=== PATIENT | female | born 1955 | race Caucasian/White ===

== ENCOUNTER 2018-05-01 21:09 | Emergency (ER) | payer OTHER ==
[~2018-05-01] VITALS: Ht 160 cm; Wt 95.3 kg
--- NOTE | 2018-05-01 23:22 | Diagnostic Imaging Report ---
EXAMINATION: CHEST 2 VIEWS INDICATION: EPIGASTRIC PAIN COMPARISON: None FINDINGS: PA and lateral views TUBES and LINES: None. LUNGS: Lungs are well inflated. Lungs are clear. There is no evidence of pneumonia or pulmonary edema. PLEURA: No pleural effusion or pneumothorax. HEART AND MEDIASTINUM: The cardiomediastinal silhouette is unremarkable. There are atherosclerotic calcifications within the aorta. BONES AND SOFT TISSUES: There are degenerative changes in the thoracic spine. Soft tissues are unremarkable. UPPER ABDOMEN: No free air under the diaphragm. IMPRESSION: No acute thoracic abnormality. Signed by: DR. César Armendariz MD on 05/01/2018 11:18 PM
== END 2018-05-02 01:18 | disposition home or self-care (01) ==
LOC: ER 21:09
DX: R07.89 Other chest pain (principal); I10 Essential (primary) hypertension; E78.5 Hyperlipidemia, unspecified
CPT/HCPCS: 71046; 93005; 99283

== ENCOUNTER → 2020-02-25 | Day surgery (SDC) | payer OTHER ==
[~2020-02-25] MED LIST: ALLERGY RELIEF10 M4 PO; GLUCAGON FOR INJ 1 MG VIAL ONE; HYOSCYAMINE 0.125 MG TAB ONE; HYOSCYAMINE SULFATE 0.5 MG/ML INJ ONE; IBUPROFEN200 MG PO; LIDOCAINE HCL 2% LOCAL INJ 5 ML SDV VIAL INJ ONE; LOVASTATIN20 MG PO; LYRICA150 MG PO; MICARDIS40 MG PO; PANTOPRAZOLE 40 MG 10ML VIAL IV ONE; PRILOSEC OTC20 MG PO; PROPOFOL IV EMULSION 10 MG/ML 20 ML VIAL ONE; SYNTHROID75 MCG PO
[2020-02-25 19:55] VITALS: BP 134/80
== END | disposition home or self-care (01) ==
LOC: OR 14:31
PROVIDERS: ATTEND Internal Medicine Gastroenterology
DX: K59.09 Other constipation (principal); K31.7 Polyp of stomach and duodenum; K29.50 Unspecified chronic gastritis without bleeding; K20.90 Esophagitis, unspecified without bleeding; K57.30 Diverticulosis of large intestine without perforation or abscess without bleeding; K21.9 Gastro-esophageal reflux disease without esophagitis; K64.8 Other hemorrhoids; E03.9 Hypothyroidism, unspecified; I10 Essential (primary) hypertension; E78.5 Hyperlipidemia, unspecified; M19.90 Unspecified osteoarthritis, unspecified site; Z01.812 Encounter for preprocedural laboratory examination; Z20.828 Contact with and (suspected) exposure to other viral communicable diseases
CPT/HCPCS: 43239; 45378; C9113; J1610; J1980; J2001; J2704; U0002

== ENCOUNTER 2020-03-31 14:27 | Emergency (ER) | payer OTHER ==
[~2020-03-31] VITALS: Ht 160 cm; Wt 95.3 kg
[~2020-03-31 14:27] MED LIST changes: -GLUCAGON FOR INJ 1 MG VIAL ONE; -HYOSCYAMINE 0.125 MG TAB ONE; -HYOSCYAMINE SULFATE 0.5 MG/ML INJ ONE; -LIDOCAINE HCL 2% LOCAL INJ 5 ML SDV VIAL INJ ONE; -PANTOPRAZOLE 40 MG 10ML VIAL IV ONE; -PROPOFOL IV EMULSION 10 MG/ML 20 ML VIAL ONE
[2020-03-31] MEDS ORDERED: FAMOTIDINE 20 MG/2 ML VIAL IV STA (15:29)
[2020-03-31] MEDS ORDERED: SODIUM CHLORIDE 0.9% 1000ML 1,000 ML IV SCH (15:30)
[2020-03-31] MEDS ORDERED: ONDANSETRON HCL INJ 2MG/ML 2ML 2 MG/ML VIAL IV STA (15:53)
[2020-03-31] MEDS ORDERED: MECLIZINE HCL 12.5 MG TAB PO ONE (16:00)
[2020-03-31] MEDS ORDERED: ONDANSETRON HCL INJ 2MG/ML 2ML 2 MG/ML VIAL ONE (16:29)
[2020-03-31] MEDS ORDERED: MECLIZINE HCL 12.5 MG TAB ONE (16:29)
[2020-03-31] MEDS ORDERED: FAMOTIDINE 20 MG/2 ML VIAL IV ONE (16:29)
[2020-03-31] MEDS ORDERED: SODIUM CHLORIDE 0.9% 1000ML 1,000 ML ONE (16:29)
[2020-03-31] MEDS ORDERED: ONDANSETRON ODT8 MG PO (18:11)
[2020-03-31] MEDS ORDERED: ONDANSETRON ODT4 MG PO (18:11)
[2020-03-31] MEDS ORDERED: MECLIZINE HCL12.5 MG PO (18:12)
[2020-03-31 18:22] VITALS: BP 168/96
[2020-03-31] MEDS ORDERED: FAMOTIDINE20 MG PO (18:23)
== END 2020-03-31 18:24 | disposition home or self-care (01) ==
LOC: FSED 15:30
DX: R42 Dizziness and giddiness (principal); K29.70 Gastritis, unspecified, without bleeding; R11.2 Nausea with vomiting, unspecified; K21.9 Gastro-esophageal reflux disease without esophagitis; I10 Essential (primary) hypertension; E03.9 Hypothyroidism, unspecified; E78.5 Hyperlipidemia, unspecified; G62.9 Polyneuropathy, unspecified; Z96.653 Presence of artificial knee joint, bilateral
CPT/HCPCS: 70450; 80053; 81003; 82553; 84484; 85025; 93005; 99284; J2405; J7030; J8597

== ENCOUNTER 2020-05-27 12:47 | Inpatient (IN) | payer OTHER ==
[~2020-05-27] VITALS: Ht 160 cm; Wt 93.9 kg
[~2020-05-27 12:47] MED LIST changes: +FAMOTIDINE20 MG PO; +MECLIZINE HCL12.5 MG PO; +ONDANSETRON ODT4 MG PO; +ONDANSETRON ODT8 MG PO
[2020-05-27] MEDS ORDERED: DILTIAZEM HCL 5 MG/ML 5 ML VIAL IV STA (13:09)
[2020-05-27] MEDS ORDERED: ASPIRIN 325 MG TAB PO ONE (13:15)
[2020-05-27] MEDS ORDERED: ASPIRIN 325 MG TAB ONE (13:29)
[2020-05-27] MEDS ORDERED: DILTIAZEM HCL VIAL 5 ML ONE (13:30)
[2020-05-27] MEDS ORDERED: ASPIRIN 81 MG CHEW TAB PO ONE (14:30)
[2020-05-27] MEDS ORDERED: SODIUM CHLORIDE FLUSH 10 ML SYR INJ PRN (14:30)
[2020-05-27] MEDS ORDERED: ONDANSETRON HCL INJ 2MG/ML 2ML 2 MG/ML VIAL IV PRN (14:30)
[2020-05-27] MEDS ORDERED: DILTIAZEM HCL 30 MG TAB PO SCH (15:00)
[2020-05-27] MEDS ORDERED: ASPIRIN 81 MG CHEW TAB ONE (16:26)
[2020-05-27] MEDS ORDERED: DOCUSATE SODIUM 100 MG CAP PO PRN (17:00)
[2020-05-27 17:05] VITALS: BP 150/91
[2020-05-27 17:30] LABS: BASOPHILS % 0.6 % (0.0-1.0); EOSINOPHILS # (AUTO) 0.1 (0.0-0.4); EOSINOPHILS % 1.1 % (0.0-6.0); HEMATOCRIT 44.1 % (34.2-44.1); HEMOGLOBIN 14.2 g/dL (12.0-16.0); LYMPHOCYTES # (AUTO) 1.8 (1.0-3.2); LYMPHOCYTES % 27.3 % (18.0-39.1); MEAN CORPUSCULAR HEMOGLOBIN 25.7 pg (28-32); MEAN CORPUSCULAR HGB CONC 32.2 g/dL (31-35); MEAN CORPUSCULAR VOLUME 79.9 fL (81-99); MONOCYTES # (AUTO) 0.5 (0.2-0.8); NEUTROPHILS # (AUTO) 4.1 (2.1-6.9); NEUTROPHILS % 62.8 % (38.7-80.0); PLATELET COUNT 305 x10e3/uL (140-360); RED BLOOD COUNT 5.52 x10e6/uL (3.6-5.1); RED CELL DISTRIBUTION WIDTH 14.2 % (11.7-14.4)
[2020-05-27 17:48] LABS: ALANINE AMINOTRANSFERASE 17 IU/L (0-55); ALBUMIN 4.2 g/dL (3.5-5.0); ALBUMIN/GLOBULIN RATIO 1.2 (0.8-2.0); ALKALINE PHOSPHATASE 83 IU/L (40-150); BLOOD UREA NITROGEN 14 mg/dL (7-26); BUN/CREATININE RATIO 18 (6-25); CALCIUM 9.4 mg/dL (8.4-10.2); CARBON DIOXIDE 23 mmol/L (22-29); CHLORIDE 105 mmol/L (98-107); CREATININE, SERUM 0.76 mg/dL (0.57-1.11); EST GLOMERULAR FILTRATION RATE > 60 ML/MIN (60-); GLUCOSE 96 mg/dL (74-118); SODIUM 141 mmol/L (136-145)
[2020-05-27 18:00] LABS: CHOL/HDL RATIO 4.7 (3.0-3.6)
[2020-05-27] MEDS: ENOXAPARIN SODIUM INJ 100 MG/ML SYR SC SCH (18:39)
[2020-05-27 20:00] VITALS: BP 114/77
[2020-05-27] MEDS ORDERED: AMLODIPINE BESY10 MG PO (20:40)
[2020-05-28] VITALS (8 sets, daily range): BP systolic 113–127; BP diastolic 67–86
[2020-05-28] MEDS: DILTIAZEM HCL 30 MG TAB PO SCH ×4 (00:41→20:48)
[2020-05-28] MEDS: ENOXAPARIN SODIUM INJ 100 MG/ML SYR SC SCH ×2 (05:41→16:44)
[2020-05-28] MEDS: LEVOTHYROXINE SODIUM 75 MCG TAB PO SCH (05:50)
[2020-05-28 08:15] LABS: CREATINE KINASE MB 0.3 ng/mL (0-5.0)
[2020-05-28 08:28] LABS: BASOPHILS # (AUTO) 0.1 (0.0-0.1); BASOPHILS % 0.8 % (0.0-1.0); EOSINOPHILS # (AUTO) 0.1 (0.0-0.4); EOSINOPHILS % 1.4 % (0.0-6.0); HEMATOCRIT 41.6 % (34.2-44.1); HEMOGLOBIN 13.6 g/dL (12.0-16.0); LYMPHOCYTES # (AUTO) 2.2 (1.0-3.2); LYMPHOCYTES % 33.7 % (18.0-39.1); MEAN CORPUSCULAR HEMOGLOBIN 26.2 pg (28-32); MEAN CORPUSCULAR HGB CONC 32.7 g/dL (31-35); MONOCYTES # (AUTO) 0.6 (0.2-0.8); MONOCYTES % 8.9 % (4.4-11.3); NEUTROPHILS # (AUTO) 3.5 (2.1-6.9); NEUTROPHILS % 54.9 % (38.7-80.0); PLATELET COUNT 292 x10e3/uL (140-360); RED CELL DISTRIBUTION WIDTH 14.3 % (11.7-14.4)
[2020-05-28 08:35] LABS: ANION GAP 15.4 mmol/L (8-16); BLOOD UREA NITROGEN 16 mg/dL (7-26); BUN/CREATININE RATIO 20 (6-25); CALCIUM 9.2 mg/dL (8.4-10.2); CARBON DIOXIDE 23 mmol/L (22-29); CHLORIDE 108 mmol/L (98-107); EST GLOMERULAR FILTRATION RATE > 60 ML/MIN (60-); GLUCOSE 102 mg/dL (74-118); POTASSIUM 4.4 mmol/L (3.5-5.1); SODIUM 142 mmol/L (136-145)
[2020-05-28] MEDS ORDERED: NON-FORMULARY MEDICATION (Omeprazole Magnesium (Prilosec Otc) 40 MG) PO SCH (09:00)
[2020-05-28] MEDS ORDERED: NON-FORMULARY MEDICATION (Lovastatin 20 MG) PO SCH (09:00)
[2020-05-28] MEDS ORDERED: ASPIRIN 325 MG TAB EC PO SCH (09:00)
[2020-05-28] MEDS: PANTOPRAZOLE SOD 40 MG TABEC PO SCH (09:12)
[2020-05-28] MEDS: TELMISARTAN 40 MG TAB PO SCH (09:15)
[2020-05-28] MEDS: FAMOTIDINE 20 MG/2 ML VIAL IV SCH (16:55)
[2020-05-28] MEDS: ATORVASTATIN 40 MG TAB PO SCH (20:48)
[2020-05-28] MEDS: ZOLPIDEM TARTRATE 5 MG TAB PO PRN (20:49)
[2020-05-28] MEDS ORDERED: SIMVASTATIN 20 MG TAB PO SCH (21:00)
[2020-05-29] VITALS (8 sets, daily range): BP systolic 117–139; BP diastolic 73–89
[2020-05-29] MEDS: ENOXAPARIN SODIUM INJ 100 MG/ML SYR SC SCH ×2 (06:00→18:02)
[2020-05-29] MEDS: LEVOTHYROXINE SODIUM 75 MCG TAB PO SCH (06:30)
[2020-05-29] MEDS ORDERED: VERAPAMIL HCL 2.5 MG/ML 2 ML VIAL ONE (07:26)
[2020-05-29] MEDS ORDERED: HEPARIN SOD (PORCINE) 1000 UNIT/ML 30ML ONE (07:26)
[2020-05-29] MEDS ORDERED: FENTANYL CITRATE/PF 100MCG/2 ML INJ ONE (07:28)
[2020-05-29] MEDS ORDERED: LIDOCAINE HCL 2% LOCAL 20 ML VIAL ONE (07:28)
[2020-05-29] MEDS ORDERED: MIDAZOLAM HCL 2 MG/2 ML VIAL ONE (07:28)
[2020-05-29] MEDS ORDERED: IOPAMIDOL 370 MG/ML 200 ML INFUS..BTL INJ ONE (07:29)
[2020-05-29] MEDS ORDERED: NITROGLYCERIN/D5W 200 MCG/ML 250 ML ONE (07:29)
[2020-05-29] MEDS ORDERED: SODIUM CHLORIDE 0.9% 1000ML 1,000 ML ONE (07:29)
[2020-05-29] MEDS ORDERED: HEPARIN SOD/SOD CHLORIDE 2,000 ML ONE (07:29)
[2020-05-29] MEDS: PANTOPRAZOLE SOD 40 MG TABEC PO SCH ×2 (07:30→10:08)
[2020-05-29] MEDS: TELMISARTAN 40 MG TAB PO SCH ×2 (08:20→10:09)
[2020-05-29] MEDS: DILTIAZEM HCL 30 MG TAB PO SCH (08:20)
[2020-05-29] MEDS: ASPIRIN 81 MG ENTERIC COATED PO SCH (08:20)
[2020-05-29] MEDS: FAMOTIDINE 20 MG/2 ML VIAL IV SCH ×2 (08:21→19:00)
[2020-05-29] MEDS ORDERED: ASPIRIN 325 MG TAB ONE (09:28)
[2020-05-29] MEDS ORDERED: CLOPIDOGREL BISULFATE 75 MG TAB ONE (09:28)
[2020-05-29 10:46] LABS: BASOPHILS # (AUTO) 0.1 (0.0-0.1); BASOPHILS % 0.8 % (0.0-1.0); EOSINOPHILS # (AUTO) 0.1 (0.0-0.4); EOSINOPHILS % 1.8 % (0.0-6.0); HEMATOCRIT 46.4 % (34.2-44.1); HEMOGLOBIN 14.9 g/dL (12.0-16.0); LYMPHOCYTES # (AUTO) 2.3 (1.0-3.2); MEAN CORPUSCULAR HEMOGLOBIN 26.3 pg (28-32); MEAN CORPUSCULAR HGB CONC 32.1 g/dL (31-35); MONOCYTES # (AUTO) 0.5 (0.2-0.8); MONOCYTES % 7.9 % (4.4-11.3); NEUTROPHILS # (AUTO) 3.7 (2.1-6.9); NEUTROPHILS % 55.2 % (38.7-80.0); PLATELET COUNT 271 x10e3/uL (140-360); RED BLOOD COUNT 5.66 x10e6/uL (3.6-5.1)
[2020-05-29 11:03] LABS: ANION GAP 16.2 mmol/L (8-16); BLOOD UREA NITROGEN 14 mg/dL (7-26); BUN/CREATININE RATIO 18 (6-25); CALCIUM 9.2 mg/dL (8.4-10.2); CARBON DIOXIDE 20 mmol/L (22-29); CHLORIDE 108 mmol/L (98-107); EST GLOMERULAR FILTRATION RATE > 60 ML/MIN (60-); GLUCOSE 100 mg/dL (74-118); POTASSIUM 4.2 mmol/L (3.5-5.1); SODIUM 140 mmol/L (136-145)
[2020-05-29] MEDS ORDERED: DILTIAZEM HCL ER 120 MG CAP PO ONE ×2 (17:00→21:15)
[2020-05-29] MEDS: ATORVASTATIN 40 MG TAB PO SCH (20:57)
[2020-05-29] MEDS: ZOLPIDEM TARTRATE 5 MG TAB PO PRN (20:57)
[2020-05-29] MEDS: ACETAMINOPHEN 325 MG TAB PO PRN (21:20)
[2020-05-30] VITALS (9 sets, daily range): BP systolic 102–130; BP diastolic 56–77
[2020-05-30] MEDS: ENOXAPARIN SODIUM INJ 100 MG/ML SYR SC SCH (05:54)
[2020-05-30] MEDS: LEVOTHYROXINE SODIUM 75 MCG TAB PO SCH (05:54)
[2020-05-30] MEDS: FAMOTIDINE 20 MG/2 ML VIAL IV SCH ×2 (08:15→17:00)
[2020-05-30] MEDS: PANTOPRAZOLE SOD 40 MG TABEC PO SCH (08:16)
[2020-05-30] MEDS: ASPIRIN 81 MG ENTERIC COATED PO SCH (08:18)
[2020-05-30] MEDS: CLOPIDOGREL BISULFATE 75 MG TAB PO SCH (08:18)
[2020-05-30] MEDS ORDERED: DILTIAZEM HCL ER 120 MG CAP PO SCH (09:00)
[2020-05-30] MEDS ORDERED: AMIODARONE HCL200 MG PO (13:27)
[2020-05-30] MEDS ORDERED: PLAVIX75 MG PO (13:27)
[2020-05-30] MEDS ORDERED: ASPIRIN EC81 MG PO (13:27)
[2020-05-30] MEDS ORDERED: LOPRESSOR25 MG PO (13:27)
[2020-05-30] MEDS ORDERED: ELIQUIS5 MG PO (13:27)
[2020-05-30] MEDS ORDERED: Atorvastatin PO (13:27)
[2020-05-30] MEDS: AMIODARONE HCL 200 MG TAB PO SCH (14:09)
[2020-05-30] MEDS: APIXABAN 5 MG TABLET PO SCH (14:10)
[2020-05-30] MEDS: METOPROLOL TARTRATE 25 MG TAB PO SCH ×2 (14:12→23:09)
[2020-05-30] MEDS: ATORVASTATIN 40 MG TAB PO SCH (20:00)
[2020-05-30] MEDS: ACETAMINOPHEN 325 MG TAB PO PRN (20:00)
[2020-05-30] MEDS: ZOLPIDEM TARTRATE 5 MG TAB PO PRN (20:00)
[2020-05-31] VITALS (7 sets, daily range): BP systolic 124–133; BP diastolic 68–78
[2020-05-31] MEDS: METOPROLOL TARTRATE 25 MG TAB PO SCH ×2 (06:08→12:08)
[2020-05-31] MEDS: LEVOTHYROXINE SODIUM 75 MCG TAB PO SCH (06:08)
[2020-05-31] MEDS ORDERED: FAMOTIDINE 20 MG TAB PO SCH (07:30)
[2020-05-31] MEDS: TELMISARTAN 40 MG TAB PO SCH (09:22)
[2020-05-31] MEDS: APIXABAN 5 MG TABLET PO SCH (09:22)
[2020-05-31] MEDS: AMIODARONE HCL 200 MG TAB PO SCH (09:22)
[2020-05-31] MEDS: PANTOPRAZOLE SOD 40 MG TABEC PO SCH (09:22)
[2020-05-31] MEDS: CLOPIDOGREL BISULFATE 75 MG TAB PO SCH (09:22)
[2020-05-31] MEDS: ASPIRIN 81 MG ENTERIC COATED PO SCH (09:22)
[2020-05-31] MEDS ORDERED: BACLOFEN 10 MG TAB PO NR (12:00)
== END 2020-05-31 12:35 | disposition home or self-care (01) | DRG 247 ==
LOC: FSED 13:15 → ERHOLD 14:27 → MED/SURG 16:43
PROVIDERS: ADMIT Internal Medicine; ATTEND Internal Medicine
PROC: 027034Z Dilation of Coronary Artery, One Artery with Drug-eluting Intraluminal Device, Percutaneous Approach (ICD-10-PCS; principal; 2020-05-29)
PROC: 4A023N7 Measurement of Cardiac Sampling and Pressure, Left Heart, Percutaneous Approach (ICD-10-PCS; 2020-05-29)
PROC: B2111ZZ Fluoroscopy of Multiple Coronary Arteries using Low Osmolar Contrast (ICD-10-PCS; 2020-05-29)
DX: I25.110 Atherosclerotic heart disease of native coronary artery with unstable angina pectoris (principal); I48.91 Unspecified atrial fibrillation; I10 Essential (primary) hypertension; K21.9 Gastro-esophageal reflux disease without esophagitis; E03.9 Hypothyroidism, unspecified; E78.5 Hyperlipidemia, unspecified; Z96.653 Presence of artificial knee joint, bilateral; Z20.822 Contact with and (suspected) exposure to COVID-19
CPT/HCPCS: 36415; 71045; 80048; 80053; 80061; 80076; 82550; 82553; 83880; 84484; 85025; 92928; 93005; 93306; 93454; 99152; 99153; 99284; C1725; C1760; C1769; C1874; C1887; J1644; J1650; J2001; J2250; J2405; J3010; J7030; Q9967; U0002

== ENCOUNTER 2021-01-28 17:33 | Emergency (ER) | payer MEDICARE, OTHER ==
[~2021-01-28] VITALS: Ht 160 cm; Wt 93.9 kg
[~2021-01-28 17:33] MED LIST changes: +AMIODARONE HCL200 MG PO; +AMLODIPINE BESY10 MG PO; +ASPIRIN EC81 MG PO; +Atorvastatin PO; +ELIQUIS5 MG PO; +LOPRESSOR25 MG PO; +PLAVIX75 MG PO
[2021-01-28] MEDS ORDERED: CASIRIVIMAB/IMDEVIMAB 10 ML in SODIUM CHLORIDE 0.9% 100 ML IV ONE (19:00)
== END 2021-01-28 20:20 | disposition home or self-care (01) ==
LOC: ER 18:06
DX: U07.1 COVID-19 (principal); R05.9 Cough, unspecified; I10 Essential (primary) hypertension; E03.9 Hypothyroidism, unspecified; E78.5 Hyperlipidemia, unspecified; K21.9 Gastro-esophageal reflux disease without esophagitis; G62.9 Polyneuropathy, unspecified; Z96.653 Presence of artificial knee joint, bilateral
CPT/HCPCS: 99283; J7050

== ENCOUNTER → 2021-05-05 | Outpatient (CLI) | payer MEDICARE ==
[~2021-05-05] MED LIST changes: +IOPAMIDOL 370 MG/ML 200 ML INFUS..BTL INJ ONE; +SODIUM CHLORIDE 0.9% 50ML 50 ML ONE
[2021-05-05 16:27] LABS: CREATININE, SERUM 0.82 mg/dL (0.57-1.11)
== END ==
LOC: CT 15:22
PROVIDERS: ATTEND Internal Medicine Gastroenterology
DX: R11.0 Nausea (principal); R10.10 Upper abdominal pain, unspecified; R19.5 Other fecal abnormalities
CPT/HCPCS: 36415; 74177; 82565; 84520; Q9967

== ENCOUNTER → 2021-08-05 | Day surgery (SDC) | payer MEDICARE ==
[2021-08-03 12:04] LABS: BASOPHILS # (AUTO) 0.1 (0.0-0.1); BASOPHILS % 0.8 % (0.0-1.0); EOSINOPHILS # (AUTO) 0.1 (0.0-0.4); EOSINOPHILS % 1.5 % (0.0-6.0); HEMATOCRIT 40.1 % (34.2-44.1); LYMPHOCYTES # (AUTO) 1.8 (1.0-3.2); LYMPHOCYTES % 27.1 % (18.0-39.1); MEAN CORPUSCULAR HEMOGLOBIN 28.7 pg (28-32); MEAN CORPUSCULAR HGB CONC 32.4 g/dL (31-35); MEAN CORPUSCULAR VOLUME 88.5 fL (81-99); MONOCYTES # (AUTO) 0.4 (0.2-0.8); MONOCYTES % 6.6 % (4.4-11.3); NEUTROPHILS # (AUTO) 4.1 (2.1-6.9); NEUTROPHILS % 63.7 % (38.7-80.0); PLATELET COUNT 277 x10e3/uL (140-360); RED BLOOD COUNT 4.53 x10e6/uL (3.6-5.1); RED CELL DISTRIBUTION WIDTH 13.2 % (11.7-14.4)
[~2021-08-05] MED LIST changes: +BUPIVACAINE 0.25% 30ML SDV ONE; +CATAPRES-TTS 11 EACH TD; +DILTIAZEM 24HR180 MG PO; +IOPAMIDOL 200 MG/ML 20 ML VIAL IT ONE; -IOPAMIDOL 370 MG/ML 200 ML INFUS..BTL INJ ONE; +LIDOCAINE HCL 1% 30ML-PF VIAL ONE; +MIDAZOLAM HCL 2 MG/2 ML VIAL ONE; +POVIDONE IODINE 0.05% 0.05 % ML PO ONE; +PRALUENT P75 MG/1 ML SC; +PROPOFOL IV EMULSION 10 MG/ML 20 ML VIAL ONE; +SCOPOLAMINE 1 MG PATCH ONE; -SODIUM CHLORIDE 0.9% 50ML 50 ML ONE
[2021-08-05 08:00] VITALS: BP 135/70
== END | disposition home or self-care (01) ==
LOC: OR 07:25
PROVIDERS: ATTEND Physical Medicine & Rehabilitation Pain Medicine
DX: M47.896 Other spondylosis, lumbar region (principal); M47.892 Other spondylosis, cervical region; G47.33 Obstructive sleep apnea (adult) (pediatric); I25.10 Atherosclerotic heart disease of native coronary artery without angina pectoris; E03.9 Hypothyroidism, unspecified; K21.9 Gastro-esophageal reflux disease without esophagitis; H91.90 Unspecified hearing loss, unspecified ear; I10 Essential (primary) hypertension; I48.91 Unspecified atrial fibrillation; E66.9 Obesity, unspecified; Z01.810 Encounter for preprocedural cardiovascular examination; Z01.812 Encounter for preprocedural laboratory examination; Z20.822 Contact with and (suspected) exposure to COVID-19; Z79.82 Long term (current) use of aspirin; Z79.02 Long term (current) use of antithrombotics/antiplatelets; Z79.899 Other long term (current) drug therapy; Z68.39 Body mass index [BMI] 39.0-39.9, adult; Z95.5 Presence of coronary angioplasty implant and graft; Z96.653 Presence of artificial knee joint, bilateral
CPT/HCPCS: 36415; 64493; 64494; 64495; 77003; 85025; 93005; J2001; J2250; J2704; Q9967; U0002

== ENCOUNTER 2024-02-14 14:47 | Emergency (ER) | payer MEDICARE ==
[~2024-02-14] VITALS: Ht 157.5 cm; Wt 91.2 kg
[~2024-02-14 14:47] MED LIST changes: -BUPIVACAINE 0.25% 30ML SDV ONE; -IOPAMIDOL 200 MG/ML 20 ML VIAL IT ONE; -LIDOCAINE HCL 1% 30ML-PF VIAL ONE; -MIDAZOLAM HCL 2 MG/2 ML VIAL ONE; -POVIDONE IODINE 0.05% 0.05 % ML PO ONE; -PROPOFOL IV EMULSION 10 MG/ML 20 ML VIAL ONE; -SCOPOLAMINE 1 MG PATCH ONE
[2024-02-14 14:51] VITALS: PULSE 70; TEMP 97.8
[2024-02-14] MEDS ORDERED: ZETIA10 MG PO (15:10)
[2024-02-14] MEDS ORDERED: MINOXIDIL2.5 MG PO (15:10)
[2024-02-14] MEDS ORDERED: ELIQUIS5 MG PO (15:10)
[2024-02-14] MEDS ORDERED: PROTONIX20 MG PO (15:10)
[2024-02-14] MEDS ORDERED: BACLOFEN10 MG PO (15:10)
[2024-02-14] MEDS ORDERED: IOPAMIDOL 370 MG/ML 100 ML INFUS..BTL INJ ONE (15:33)
[2024-02-14] MEDS ORDERED: SODIUM CHLORIDE 0.9% 100 ML ONE (15:33)
[2024-02-14] MEDS: MECLIZINE HCL 12.5 MG TAB PO ONE (15:47)
[2024-02-14] MEDS: SODIUM CHLORIDE 0.9% 1000ML 1,000 ML IV ONE (15:47)
[2024-02-14] MEDS: ONDANSETRON HCL INJ 2MG/ML 2ML 2 MG/ML VIAL IV STA (15:48)
[2024-02-14] MEDS: DEXAMETHASONE SOD PHOS INJ 4 MG/ML SDV IV ONE (15:53)
[2024-02-14 16:27] VITALS: BP 157/73
[2024-02-14] MEDS: HYDRALAZINE HCL 20 MG/ML VIAL IV ONE (16:27)
[2024-02-14 17:29] VITALS: PULSE 72; RESP 16; O2SAT 97
[2024-02-19] MEDS ORDERED: PEPCID20 MG PO (19:25)
[2024-02-19] MEDS ORDERED: ONDANSETRON ODT4 MG PO (19:25)
== END 2024-02-14 17:30 | disposition home or self-care (01) ==
LOC: FSED 14:53
DX: H81.10 Benign paroxysmal vertigo, unspecified ear (principal); E86.0 Dehydration; I10 Essential (primary) hypertension; E78.5 Hyperlipidemia, unspecified; E03.9 Hypothyroidism, unspecified; K21.9 Gastro-esophageal reflux disease without esophagitis; Z11.52 Encounter for screening for COVID-19; R94.31 Abnormal electrocardiogram [ECG] [EKG]; Z95.5 Presence of coronary angioplasty implant and graft; Z96.653 Presence of artificial knee joint, bilateral
CPT/HCPCS: 0223U; 70496; 70498; 80053; 81003; 82553; 84484; 85025; 87400; 93005; 99284; J1100; J2405; J7030; J7050; J8597; Q9967; J0360

== ENCOUNTER → 2024-03-12 | Day surgery (SDC) | payer MEDICARE ==
[2024-03-08 13:31] LABS: BASOPHILS # (AUTO) 0.1 (0.0-0.1); EOSINOPHILS # (AUTO) 0.1 (0.0-0.4); EOSINOPHILS % 1.4 % (0.0-6.0); HEMATOCRIT 39.7 % (34.2-44.1); HEMOGLOBIN 12.7 g/dL (12.0-16.0); LYMPHOCYTES % 25.4 % (18.0-39.1); MEAN CORPUSCULAR HEMOGLOBIN 28.5 pg (28-32); MONOCYTES # (AUTO) 0.6 (0.2-0.8); NEUTROPHILS # (AUTO) 5.2 (2.1-6.9); NEUTROPHILS % 64.8 % (38.7-80.0); PLATELET COUNT 276 x10e3/uL (140-360); RED BLOOD COUNT 4.46 x10e6/uL (3.6-5.1); RED CELL DISTRIBUTION WIDTH 12.5 % (11.7-14.4); WHITE BLOOD COUNT 8.02 x10e3/uL (4.8-10.8)
[~2024-03-12] MED LIST changes: +BACLOFEN10 MG PO; +FENTANYL CITRATE/PF 100MCG/2 ML INJ ONE; +GLYCOPYRROLATE INJ 0.2 MG/ML VIAL ONE; +LIDOCAINE HCL 2% LOCAL INJ 5 ML SDV VIAL INJ ONE; +MINOXIDIL2.5 MG PO; +MOUNJARO10 MG/0.5 SC; +NEXLETOL180 MG PO; +PEPCID20 MG PO; +PROPOFOL IV EMULSION 10 MG/ML 20 ML VIAL ONE; +PROTONIX20 MG PO; +ZETIA10 MG PO
[2024-03-12 12:49] VITALS: TEMP 97.6
[2024-03-12 13:20] VITALS: BP 118/68; PULSE 68; RESP 16; O2SAT 100
== END | disposition home or self-care (01) ==
LOC: OR 09:56
PROVIDERS: ATTEND Internal Medicine Gastroenterology
DX: K21.9 Gastro-esophageal reflux disease without esophagitis (principal); K29.50 Unspecified chronic gastritis without bleeding; K29.80 Duodenitis without bleeding; K31.89 Other diseases of stomach and duodenum; K57.90 Diverticulosis of intestine, part unspecified, without perforation or abscess without bleeding; K64.8 Other hemorrhoids; K76.89 Other specified diseases of liver; G47.33 Obstructive sleep apnea (adult) (pediatric); I25.10 Atherosclerotic heart disease of native coronary artery without angina pectoris; I10 Essential (primary) hypertension; E78.5 Hyperlipidemia, unspecified; I48.91 Unspecified atrial fibrillation; E03.9 Hypothyroidism, unspecified; Z01.812 Encounter for preprocedural laboratory examination; Z79.02 Long term (current) use of antithrombotics/antiplatelets; Z79.85 Long-term (current) use of injectable non-insulin antidiabetic drugs; Z68.37 Body mass index [BMI] 37.0-37.9, adult; Z95.5 Presence of coronary angioplasty implant and graft
CPT/HCPCS: 36415; 43239; 85025; 88305; 88342; J2003; J2704; J3010